=== PATIENT | male | born 1970 | race Caucasian/White ===

== ENCOUNTER 2016-06-14 23:57 | Emergency (ER) | payer OTHER ==
[~2016-06-14] VITALS: Ht 180.3 cm; Wt 93.0 kg
[2016-06-14 23:57] VITALS: BP 154/96; PULSE 100; RESP 18; TEMP 97.1; O2SAT 98
--- NOTE | 2016-06-15 | NUR ---
Patient to [facility] for Blood Alcohol Draw. Report given to Sergio MONTEMAYOR.
--- NOTE | 2016-06-15 00:01 | NUR ---
MD did NOT at bedside examining patient.
--- NOTE | 2016-06-15 00:01 | NUR ---
Patient Brought in by Law Enforcement s/p routine traffic stop, blood alcohol draw. No medical complain.
--- NOTE | 2016-06-15 00:10 | NUR ---
Written and verbal consent obtained from patient for blood alcohol, name and verified by patient. Disinfected patient's skin with iodine that did not contain alcohol or other volatile organic compound. Collected the blood from the subject named by venipuncture, in the presence of Officer [id number]. Used a sterile, dry hypodermic needle and dry vacuum blood collection. The dry vacuum blood collection was supplied by the officer named above. Withdrew a specimen of blood from right A/c of the subject named above. Inverted the blood tube several times to ensure that the preservative and anticoagulant were thoroughly mixed in the blood specimen. I initialed the blood tube label for identification. The labeled blood tube was handed directly to the Officer named above. The blood tube stopper remained in place while I had possession of the blood tube. The Officer placed tube into envelope and sealed it in my presence. Envelope initialed by myself and Officer named above. Patient tolerated well, bandage applied, and bleeding controlled.
[2016-06-15 00:21] VITALS: BP 138/89; PULSE 100; RESP 18; TEMP 97.6; O2SAT 99
--- NOTE | 2016-06-15 00:22 | NUR ---
Patient D/c with [facility] and verbalizes understanding. ER MD discussed with patient the results and treatment provided. Patient in stable condition. ID arm band removed. Patient educated on pain management and to follow up with PMD. Pain Scale 0/10. Opportunity for questions provided and answered.
== END 2016-06-15 00:21 ==
LOC: SED 23:57
DX: Z02.83 Encounter for blood-alcohol and blood-drug test (principal)